=== PATIENT | female | born 1945 | race American Indian/Alaskan Native ===

== ENCOUNTER 2016-07-18 08:14 | Outpatient (CLI) | payer MEDICARE ==
--- NOTE | 2016-07-18 09:52 | Mammography Report ---
BILATERAL DIGITAL DIAGNOSTIC MAMMOGRAM WITH CAD: HISTORY: Six-month follow-up for left microcalcifications. Comparison is made to previous studies in December and June of 2015 and May of 2015. FINDINGS: The microcalcifications seen in the left breast at the 12:00 position have not changed in number or configuration. There is minimal variation in morphology of the individual calcifications, and some are too small to characterize even on magnification views. The remainder of the breast parenchyma is fibrofatty and stable. No new masses are seen. There is no architectural distortion. IMPRESSION: Stable left microcalcifications. BI-RADS CATEGORY: 3 = Probably benign ACR BI-RADS MAMMOGRAPHIC CODES: 0 = Needs additional imaging evaluation; 1 = Negative; 2 = Benign; 3 = Probably benign; 4 = Suspicious; 5 = Malignant; 6 = Known biopsy-proven malignancy COMMENT: 1. Dense breast tissue, i.e., adenosis, fibrocystic changes, etc., may obscure an underlying neoplasm. 2. Approximately 10% of cancers are not detected with mammography. 3. A negative mammography report should not delay biopsy if a clinically suspicious mass is present. RECOMMENDATION: Spot magnification images of the left microcalcifications are recommended in 6 months.
== END 2016-07-18 08:15 | disposition home or self-care (01) ==
LOC: SPVWC 08:14
PROVIDERS: ATTEND Obstetrics & Gynecology
DX: R92.1 Mammographic calcification found on diagnostic imaging of breast (principal); R92.8 Other abnormal and inconclusive findings on diagnostic imaging of breast
CPT/HCPCS: 77066; G0204

== ENCOUNTER 2017-01-10 08:21 | Outpatient (CLI) | payer MEDICARE ==
--- NOTE | 2017-01-10 09:22 | Mammography Report ---
LEFT DIGITAL DIAGNOSTIC MAMMOGRAM : 01/10/17 08:21:00 CLINICAL: Six month follow-up calcifications. COMPARISON:07/18/16 and mammograms of the left breast every six months going back to 06/27/15. FINDINGS:Routine views plus ML and CC magnification views were performed. A group of calcifications at 12 to 1 o'clock have changed slightly with a few new lower density calcifications identified. A second group of more lateral calcifications with only for calcifications in the group are stable. No mass or architectural distortion. IMPRESSION: A slight change with a few new calcifications in the group of calcifications at 12 to 1 o'clock which have been followed for 18 months. The calcifications have an intermediate suspicion for malignancy. Recommend stereotactic biopsy of the left breast to exclude malignancy. BI-RADS CATEGORY: 4--Suspicious I discussed the findings and the recommendation for a left stereotactic needle breast biopsy with the patient at the time of the examination. She is undecided as to whether she wants to go through with the biopsy at this time. I recommended that she return for a diagnostic mammogram with magnification views in six months if she decides not to have a biopsy. She will be due for a bilateral mammogram at that time. ACR BI-RADS MAMMOGRAPHIC CODES: 0 = Needs additional imaging evaluation; 1 = Negative; 2 = Benign; 3 = Probably benign; 4 = Suspicious; 5 = Malignant; 6 = Known biopsy-proven malignancy COMMENT: 1. Dense breast tissue, i.e., adenosis, fibrocystic changes, etc., may obscure an underlying neoplasm. 2. Approximately 10% of cancers are not detected with mammography. 3. A negative mammography report should not delay biopsy if a clinically suspicious mass is present. COMMENT: Patient follow-up letters are generated by our [employer] application.
== END 2017-01-10 08:22 | disposition home or self-care (01) ==
LOC: SPVWC 08:21
PROVIDERS: ATTEND Obstetrics & Gynecology
DX: R92.1 Mammographic calcification found on diagnostic imaging of breast (principal)
CPT/HCPCS: G0206-LT

== ENCOUNTER 2017-01-29 08:18 | Outpatient (CLI) | payer MEDICARE ==
--- NOTE | 2017-01-29 10:12 | Mammography Report ---
LEFT DIGITAL DIAGNOSTIC MAMMOGRAM: 01/29/17 08:18:00 CLINICAL: For clip placement immediately status post stereotactic biopsy. COMPARISON:01/10/17 FINDINGS: A biopsy clip is now identified at the site of previously described calcifications. Most if not all of the calcifications had been removed. IMPRESSION: Concordant clip placement status post stereotactic biopsy. BI-RADS CATEGORY: 4--Suspicious Pathology pending.
--- NOTE | 2017-01-29 15:29 | Mammography Report ---
STEREOTACTIC VACUUM ASSISTED BIOPSY WITH CLIP PLACEMENT LEFT BREAST: 01/29/17 08:18:00 CLINICAL: Suspicious calcifications. COMPARISON:01/10/17 FINDINGS: Consent for the procedure was obtained. The previously described calcifications were targeted with stereotactic guidance. The skin was prepped with Betadine and anesthetized with 1% lidocaine. 2% lidocaine with epinephrine was injected for deeper anesthesia. 8 gauge Mammotome biopsy was performed from a CC from above approach through a small dermatotomy. Prefire and post-fire images demonstrated satisfactory positioning of the probe. Samples were obtained around the clock face. A specimen radiograph confirmed satisfactory sampling with removal of sales representative raw fibers calcifications. A clip was deployed at the biopsy site and deployment was confirmed with a radiograph. The probe was removed and hemostasis was achieved with minimal pressure. A sterile dressing was applied. The patient tolerated the procedure well and there were no apparent complications. Two view mammogram demonstrated concordant position of the biopsy clip and removal of most if not all calcifications. IMPRESSION: Uncomplicated stereotactic biopsy with clip placement left breast.
== END 2017-01-29 08:19 | disposition home or self-care (01) ==
LOC: SPVWC 08:18
PROVIDERS: ATTEND Obstetrics & Gynecology
DX: R92.1 Mammographic calcification found on diagnostic imaging of breast (principal)
CPT/HCPCS: 19081; 88305; A4648; G0206

== ENCOUNTER 2019-04-21 13:11 | Inpatient (IN) | payer MEDICARE ==
[2019-04-21 14:21] LABS: Basophils % (Auto) 0.4 % (0.0-1.8); Eosinophils # (Auto) 0.4 K/mm3 (0.0-0.4); Eosinophils % (Auto) 5.6 % (0.0-4.3); Hematocrit 37.1 % (30.3-42.9); Hemoglobin 12.7 gm/dl (10.1-14.3); Lymphocytes # (Auto) 1.8 K/mm3 (1.2-5.4); Mean Corpuscular HGB Conc 34 % (30-34); Mean Corpuscular Volume 92 fl (79-97); Monocytes # (Auto) 0.5 K/mm3 (0.0-0.8); Monocytes % (Auto) 7.4 % (0.0-7.3); Platelet Count 172 K/mm3 (140-440); Red Blood Count 4.01 M/mm3 (3.65-5.03); Red Cell Distribution Width 13.7 % (13.2-15.2)
--- NOTE | 2019-04-21 14:23 | Emergency Department Report ---
<DARVIN PEREZNOBLE Davis - Last Filed: 04/21/19 15:58> ED Neuro Deficit HPI - General Chief Complaint: Neuro Symptoms/Deficit Stated Complaint: TIA Time Seen by Provider: 04/21/19 13:44 - Related Data Allergies/Adverse Reactions: Allergies Allergy/AdvReac Type Severity Reaction Status Date / Time cephalexin monohydrate AdvReac Rash Unverified 07/11/15 12:50 [From Keflex] tetracycline AdvReac Rash Unverified 07/11/15 12:49 ED Course - Reevaluation(s) Reevaluation #1: I discussed case with patient. I discussed all results patient. Discussed plan of care outpatient. Patient agrees plan of care and admission. I examined the patient. Patient was admitted to the hospital service. A neuro consult has been done and we will await recommendations. 04/21/19 15:58 - Consultations Consultation #2: Hospitalist consult for admission. Hospitalist admit patient. 04/21/19 15:59 - Lab Data Result diagrams: 04/21/19 13:54 04/21/19 13:54 ED Disposition Clinical Impression: TIA (transient ischemic attack), Facial droop, HTN (hypertension), Weakness of extremity Disposition: DC-[id number] OP ADMIT IP TO THIS HOSP Condition: Stable <YOSELYN SALAZAR - Last Filed: 04/21/19 16:15> ED Neuro Deficit HPI - General Source: patient Mode of arrival: Ambulatory Limitations: No Limitations - History of Present Illness Initial Comments: 73-year-old -[place] female with a past medical history hypertension, diabetes, hypercholesterolemia presents to the emergency department complaining of left arm weakness and left facial tingling that started around 12:00 today. Symptoms last for about 3 or 4 minutes before spontaneously resolving. There was no loss of vision, there is no chest pain, palpitations no fevers, chills, sweats. She went to her primary care was [facility]. advises come to the front to the evaluation. 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 denies: confusion, chest pain, cough, diaphoresis, loss of appetite, malise, nausea/vomiting, vertigo, weakness Treatments Prior to Arrival: none ED Review of Systems ROS: Stated complaint: TIA Other details as noted in HPI Comment: All other systems reviewed and negative ED Past Medical Hx - Past Medical History Previous Medical History?: Yes Hx Hypertension: Yes Hx Diabetes: Yes Additional medical history: HYPERLIPEDEMIA - Surgical History Past Surgical History?: No - Social History Smoking Status: Never Smoker Substance Use Type: None ED Neuro Physical Exam - General Limitations: No Limitations General appearance: alert, in no apparent distress Suspected Stroke: Yes - Head Head exam: Present: atraumatic, normocephalic - Eye Eye exam: Present: normal appearance, PERRL, EOMI. Absent: conjunctival injection, nystagmus Pupils: Present: normal accommodation - ENT ENT exam: Present: normal exam, normal orophraynx, mucous membranes moist - Neck Neck exam: Present: normal inspection, full ROM - Respiratory Respiratory exam: Present: normal lung sounds bilaterally. Absent: respiratory distress, wheezes, rales, chest wall tenderness, accessory muscle use, decreased breath sounds - Cardiovascular Cardiovascular Exam: Present: regular rate, normal rhythm. Absent: systolic murmur, diastolic murmur, rubs, gallop - GI/Abdominal GI/Abdominal exam: Present: soft, normal bowel sounds - Extremities Exam Extremities exam: Present: normal inspection - Back Exam Back exam: Present: normal inspection - Neurological Exam Neurological exam: Present: alert, oriented X3, CN II-XII intact, motor sensory deficit, reflexes normal, other (no normal. Strength 5-5. No tremor noted.) - NIHSS Assessment Interval: Baseline 1a. Level of Consciousness: alert/keenly responsive 1b. LOC Questions: answers both correctly 1c. LOC Commands: performs tasks correctly 2. Best Gaze: normal 3. Visual: no visual loss 4. Facial Palsy: normal symmetrical movement 5b. Motor Arm Right: no drift 5a. Motor Arm Left: no drift 6a. Motor Leg Left: no drift 6b. Motor Leg Right: no drift 7. Limb Ataxia: absent 8. Sensory: normal 9. Best Language: no aphasia 10. Dysarthria: normal 11. Extinction/Inattention: no abnormality Total Score: 0 Stroke Severity: No Stroke Symptoms - Psychiatric Psychiatric exam: Present: normal affect, normal mood - Skin Skin exam: Present: warm, dry, intact, normal color. Absent: rash ED Course - Consultations Consultation #1: 04/21/19 14:01 Case was discussed with my attending Dr. Allen who recommended to involve telemetry neuro for evaluation for possible TIA 04/21/19 16:07 - Lab Data Result diagrams: 04/21/19 13:54 04/21/19 13:54 Lab Results 04/21/19 04/21/19 04/21/19 Range/Units 13:54 13:54 13:54 WBC 6.8 (4.5-11.0) K/mm3 RBC 4.01 (3.65-5.03) M/mm3 Hgb 12.7 (10.1-14.3) gm/dl Hct 37.1 (30.3-42.9) % MCV 92 (79-97) fl MCH 32 (28-32) pg MCHC 34 (30-34) % RDW 13.7 (13.2-15.2) % Plt Count 172 (140-440) K/mm3 Lymph % (Auto) 27.0 (13.4-35.0) % [place] % (Auto) 7.4 H (0.0-7.3) % Eos % (Auto) 5.6 H (0.0-4.3) % Baso % (Auto) 0.4 (0.0-1.8) % Lymph # 1.8 (1.2-5.4) K/mm3 [place] # 0.5 (0.0-0.8) K/mm3 Eos # 0.4 (0.0-0.4) K/mm3 Baso # 0.0 (0.0-0.1) K/mm3 Seg Neutrophils % 59.6 (40.0-70.0) % Seg Neutrophils # 4.0 (1.8-7.7) K/mm3 PT 12.7 (12.2-14.9) Sec. INR 0.96 (0.87-1.13) APTT 29.4 (24.2-36.6) Sec. Thrombin Time 16.9 (15.1-19.6) Sec. Sodium 140 (137-145) mmol/L Potassium 3.9 (3.6-5.0) mmol/L Chloride 101.8 (98-107) mmol/L Carbon Dioxide 25 (22-30) mmol/L Anion Gap 17 mmol/L BUN 18 H (7-17) mg/dL Creatinine 0.9 (0.7-1.2) mg/dL Estimated GFR > 60 ml/min BUN/Creatinine Ratio 20 % Glucose 105 H (65-100) mg/dL POC Glucose (70-105) Calcium 9.0 (8.4-10.2) mg/dL Total Bilirubin 0.20 (0.1-1.2) mg/dL AST 13 (5-40) units/L ALT 7 (7-56) units/L Alkaline Phosphatase 71 (35-129) units/L Total Creatine Kinase 91 (30-135) units/L CK-MB (CK-2) 2.1 (0.0-4.0) ng/mL CK-MB (CK-2) Rel Index 2.3 (0-4) Troponin T < 0.010 (0.00-0.029) ng/mL Total Protein 7.2 (6.3-8.2) g/dL Albumin 3.8 L (3.9-5) g/dL Albumin/Globulin Ratio 1.1 % 04/21/19 Range/Units 14:02 WBC (4.5-11.0) K/mm3 RBC (3.65-5.03) M/mm3 Hgb (10.1-14.3) gm/dl Hct (30.3-42.9) % MCV (79-97) fl MCH (28-32) pg MCHC (30-34) % RDW (13.2-15.2) % Plt Count (140-440) K/mm3 Lymph % (Auto) (13.4-35.0) % [place] % (Auto) (0.0-7.3) % Eos % (Auto) (0.0-4.3) % Baso % (Auto) (0.0-1.8) % Lymph # (1.2-5.4) K/mm3 [place] # (0.0-0.8) K/mm3 Eos # (0.0-0.4) K/mm3 Baso # (0.0-0.1) K/mm3 Seg Neutrophils % (40.0-70.0) % Seg Neutrophils # (1.8-7.7) K/mm3 PT (12.2-14.9) Sec. INR (0.87-1.13) APTT (24.2-36.6) Sec. Thrombin Time (15.1-19.6) Sec. Sodium (137-145) mmol/L Potassium (3.6-5.0) mmol/L Chloride (98-107) mmol/L Carbon Dioxide (22-30) mmol/L Anion Gap mmol/L BUN (7-17) mg/dL Creatinine (0.7-1.2) mg/dL Estimated GFR ml/min BUN/Creatinine Ratio % Glucose (65-100) mg/dL POC Glucose 109 H (70-105) Calcium (8.4-10.2) mg/dL Total Bilirubin (0.1-1.2) mg/dL AST (5-40) units/L ALT (7-56) units/L Alkaline Phosphatase (35-129) units/L Total Creatine Kinase (30-135) units/L CK-MB (CK-2) (0.0-4.0) ng/mL CK-MB (CK-2) Rel Index (0-4) Troponin T (0.00-0.029) ng/mL Total Protein (6.3-8.2) g/dL Albumin (3.9-5) g/dL Albumin/Globulin Ratio % - Radiology Data Radiology results: report reviewed [facility] [address] [place] [address] Cat Scan Report Signed Patient: MALOU CHAVARRIA MR#: [id number] : 1945 Acct:[id number] Age/Sex: 73 / F ADM Date: 04/21/19 Loc: ED Attending Dr: Ordering Physician: GILES GOFF Date of Service: 04/21/19 Procedure(s): CT head/brain wo con Accession Number(s): [id number] cc: GILES GOFF CT head without contrast INDICATION : Stroke symptoms. TECHNIQUE: Axial imaging performed from the skull apex through the skull base without the use of contrast. All CT scans at this location are performed using CT dose reduction for ALARA by means of automated exposure control. COMPARISON: None FINDINGS: Parenchyma: A 5 mm right frontal lobe white matter hypodensity is probably a chronic lacunar infarct. Focal chronic ischemic change in the left occipital lobe white matter. No suspicious hypodensity. No mass or mass effect. No hemorrhage. Bilateral benign basal ganglia calcifications. Ventricles: Ventricles are normal in size and appear symmetric. Soft tissues: Soft tissues including the orbits appear normal. Bones: No acute osseous abnormality. Sinuses: Sinuses and mastoid air cells are clear. IMPRESSION: No evidence of acute infarct or hemorrhage. A verbal report was given to Rufino SKAGGS in the emergency department on 04/21/19 at 03:41 PM EST. Signer Name: Jesus Jason MD Signed: 04/21/2019 3:41 PM Workstation Name: [id number] Findings [facility] [address] [place] [address] XRay Report Signed Patient: MALOU CHAVARRIA MR#: [id number] : 1945 Acct:[id number] Age/Sex: 73 / F ADM Date: 04/21/19 Loc: ED Attending Dr: Ordering Physician: GILES GOFF Date of Service: 04/21/19 Procedure(s): XR chest 1V ap Accession Number(s): [id number] cc: GILES GOFF Fluoro Time In Minutes: CHEST 1 VIEW INDICATION: unilateral weakness. COMPARISON: None FINDINGS: Support devices: None. Heart: Within normal limits. Lungs/Pleura: There is an ill-defined airspace opacity in the left lower lobe behind the heart. The remainder the lungs are clear. No pleural effusion or pneumothorax. Additional findings: None. IMPRESSION: Left lower lobe opacity. Probable segmental atelectasis. If fevers present, early pneumonia could be considered. Signer Name: Onel Sims Jr, MD Signed: 04/21/2019 3:13 PM Workstation Name: [id number] Transcribed By: TTR Dictated By: ONEL SIMS JR, MD Electronically Authenticated By: ONEL SIMS JR, MD Signed Date/Time: 04/21/19 3881 Critical care attestation.: If time is entered above; I have spent that time in minutes in the direct care of this critically ill patient, excluding procedure time. ED Disposition Is pt being admited?: Yes Does the pt Need Aspirin: No
[2019-04-21 14:40] LABS: Creatine Kinase MB 2.1 ng/mL (0.0-4.0)
[2019-04-21 14:42] LABS: Alanine Aminotransferase 7 units/L (7-56); Albumin 3.8 g/dL (3.9-5); BUN/Creatinine Ratio 20; Blood Urea Nitrogen 18 mg/dL (7-17); Hemolysis Index 7
[2019-04-21 14:54] LABS: INR 0.96 (0.87-1.13); Partial Thromboplastin Time 29.4 Sec. (24.2-36.6)
[2019-04-21 14:55] LABS: Thrombin Time 16.9 Sec. (15.1-19.6)
--- NOTE | 2019-04-21 15:18 | XRay Report ---
CHEST 1 VIEW INDICATION: unilateral weakness. COMPARISON: None FINDINGS: Support devices: None. Heart: Within normal limits. Lungs/Pleura: There is an ill-defined airspace opacity in the left lower lobe behind the heart. The r emainder the lungs are clear. No pleural effusion or pneumothorax. Additional findings: None. IMPRESSION: Left lower lobe opacity. Probable segmental atelectasis. If fevers present, early pneumonia could be considered. Signer Name: Onel Sims Jr, MD Signed: 04/21/2019 3:13 PM Workstation Name: [id number]
--- NOTE | 2019-04-21 15:45 | Cat Scan Report ---
CT head without contrast INDICATION : Stroke symptoms. TECHNIQUE: Axial imaging performed from the skull apex through the skull base without the use of con trast. All CT scans at this location are performed using CT dose reduction for ALARA by means of aut omated exposure control. COMPARISON: None FINDINGS: Parenchyma: A 5 mm right frontal lobe white matter hypodensity is probably a chronic lacunar infarct . Focal chronic ischemic change in the left occipital lobe white matter. No suspicious hypodensity. N o mass or mass effect. No hemorrhage. Bilateral benign basal ganglia calcifications. Ventricles: Ventricles are normal in size and appear symmetric. Soft tissues: Soft tissues including the orbits appear normal. Bones: No acute osseous abnormality. Sinuses: Sinuses and mastoid air cells are clear. IMPRESSION: No evidence of acute infarct or hemorrhage. A verbal report was given to Rufino SKAGGS in the emergency department on 04/21/19 at 03:41 PM EST. Signer Name: Jesus Jason MD Signed: 04/21/2019 3:41 PM Workstation Name: [id number]
--- NOTE | 2019-04-21 16:42 | Emergency Department Report ---
ED Neuro Deficit HPI - General Chief Complaint: Neuro Symptoms/Deficit Stated Complaint: TIA Time Seen by Provider: 04/21/19 13:44 Source: patient Mode of arrival: Ambulatory Limitations: No Limitations - History of Present Illness Initial Comments: [facility] Impression: TIA - Right hemispheric - Resolved symptoms - m/l cardioembolic, history of afib will need transition to anticoagulant - needs admission for further workup Recommendations: Activate Stroke protocol admission/order set Stroke/telemetry floor Neuro checks Bedside swallow eval Dvt prophylaxis IV fluids, normal saline ASA if no contraindications Head of bed below 30 degrees Euglycemia and avoid hyperthermia (prn acetaminophen) Discussed with ed md Call with questions 1945 CC: numbness History of Present Illness: The patient was on her way for [employer] education and her left hand started to get numb- from hand to arm. The numbness started to go away from the hand and started on the chin. Lasted about 5 minutes and it happened around 1145. After everything went away she did not get a headache. This has not happened before. No previous stroke, she does have afib, but not on a blood thinner. Diagnostic Testing: Ct head without contrast: no acute findings per rad read Exam: Mental Status: Awake, alert, oriented Naming: Intact Repetition: Intact Speech: fluent Cranial Nerves: Pupils: Equal round and reactive to light Extraocular movements: Intact in all cardinal gaze Ptosis: right eye, chronic Visual acosta: Intact to finger counting, on left. 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 - Extensive amount of complex data reviewed. - High risk of complication and/or morbidity or mortality are associated with differential diagnostic considerations above. - There may be uncertain outcome and increased probability of prolonged function al impairment or high probability of severe prolonged functional impairment associated with some of these differential diagnosis. Medical Data Reviewed: 1.Data reviewed include clinical labs, radiology, Medical Tests; 2.Tests results discussed w/performing or interpreting physician; 3.Obtaining/reviewing old medical records; 4.Obtaining case history from another source; 5.Independent review of image, tracing or specimen. Patient was informed the Neurology Consult would happen via telehealth (remote video) and consented to receiving care in this manner. Location: left arm History of same: No Place: other (in the car on the way to diabetic training) Severity: mild Quality: weak, numb, tingling Improves With: none Worsens With: none On Anticoagulants: No Treatments Prior to Arrival: none - Related Data Allergies/Adverse Reactions: Allergies Allergy/AdvReac Type Severity Reaction Status Date / Time cephalexin monohydrate AdvReac Rash Unverified 07/11/15 12:50 [From Keflex] tetracycline AdvReac Rash Unverified 07/11/15 12:49 ED Review of Systems ROS: Stated complaint: TIA Other details as noted in HPI ED Past Medical Hx - Past Medical History Previous Medical History?: Yes Hx Hypertension: Yes Hx Diabetes: Yes Additional medical history: HYPERLIPEDEMIA - Surgical History Past Surgical History?: No - Social History Smoking Status: Never Smoker Substance Use Type: None ED Neuro Physical Exam - General Limitations: No Limitations General appearance: alert, in no apparent distress Suspected Stroke: No - Lab Data Result diagrams: 04/21/19 13:54 04/21/19 13:54 Lab Results 04/21/19 04/21/19 04/21/19 Range/Units 13:54 13:54 13:54 WBC 6.8 (4.5-11.0) K/mm3 RBC 4.01 (3.65-5.03) M/mm3 Hgb 12.7 (10.1-14.3) gm/dl Hct 37.1 (30.3-42.9) % MCV 92 (79-97) fl MCH 32 (28-32) pg MCHC 34 (30-34) % RDW 13.7 (13.2-15.2) % Plt Count 172 (140-440) K/mm3 Lymph % (Auto) 27.0 (13.4-35.0) % [place] % (Auto) 7.4 H (0.0-7.3) % Eos % (Auto) 5.6 H (0.0-4.3) % Baso % (Auto) 0.4 (0.0-1.8) % Lymph # 1.8 (1.2-5.4) K/mm3 [place] # 0.5 (0.0-0.8) K/mm3 Eos # 0.4 (0.0-0.4) K/mm3 Baso # 0.0 (0.0-0.1) K/mm3 Seg Neutrophils % 59.6 (40.0-70.0) % Seg Neutrophils # 4.0 (1.8-7.7) K/mm3 PT 12.7 (12.2-14.9) Sec. INR 0.96 (0.87-1.13) APTT 29.4 (24.2-36.6) Sec. Thrombin Time 16.9 (15.1-19.6) Sec. Sodium 140 (137-145) mmol/L Potassium 3.9 (3.6-5.0) mmol/L Chloride 101.8 (98-107) mmol/L Carbon Dioxide 25 (22-30) mmol/L Anion Gap 17 mmol/L BUN 18 H (7-17) mg/dL Creatinine 0.9 (0.7-1.2) mg/dL Estimated GFR > 60 ml/min BUN/Creatinine Ratio 20 % Glucose 105 H (65-100) mg/dL POC Glucose (70-105) Calcium 9.0 (8.4-10.2) mg/dL Total Bilirubin 0.20 (0.1-1.2) mg/dL AST 13 (5-40) units/L ALT 7 (7-56) units/L Alkaline Phosphatase 71 (35-129) units/L Total Creatine Kinase 91 (30-135) units/L CK-MB (CK-2) 2.1 (0.0-4.0) ng/mL CK-MB (CK-2) Rel Index 2.3 (0-4) Troponin T < 0.010 (0.00-0.029) ng/mL Total Protein 7.2 (6.3-8.2) g/dL Albumin 3.8 L (3.9-5) g/dL Albumin/Globulin Ratio 1.1 % 04/21/19 Range/Units 14:02 WBC (4.5-11.0) K/mm3 RBC (3.65-5.03) M/mm3 Hgb (10.1-14.3) gm/dl Hct (30.3-42.9) % MCV (79-97) fl MCH (28-32) pg MCHC (30-34) % RDW (13.2-15.2) % Plt Count (140-440) K/mm3 Lymph % (Auto) (13.4-35.0) % [place] % (Auto) (0.0-7.3) % Eos % (Auto) (0.0-4.3) % Baso % (Auto) (0.0-1.8) % Lymph # (1.2-5.4) K/mm3 [place] # (0.0-0.8) K/mm3 Eos # (0.0-0.4) K/mm3 Baso # (0.0-0.1) K/mm3 Seg Neutrophils % (40.0-70.0) % Seg Neutrophils # (1.8-7.7) K/mm3 PT (12.2-14.9) Sec. INR (0.87-1.13) APTT (24.2-36.6) Sec. Thrombin Time (15.1-19.6) Sec. Sodium (137-145) mmol/L Potassium (3.6-5.0) mmol/L Chloride (98-107) mmol/L Carbon Dioxide (22-30) mmol/L Anion Gap mmol/L BUN (7-17) mg/dL Creatinine (0.7-1.2) mg/dL Estimated GFR ml/min BUN/Creatinine Ratio % Glucose (65-100) mg/dL POC Glucose 109 H (70-105) Calcium (8.4-10.2) mg/dL Total Bilirubin (0.1-1.2) mg/dL AST (5-40) units/L ALT (7-56) units/L Alkaline Phosphatase (35-129) units/L Total Creatine Kinase (30-135) units/L CK-MB (CK-2) (0.0-4.0) ng/mL CK-MB (CK-2) Rel Index (0-4) Troponin T (0.00-0.029) ng/mL Total Protein (6.3-8.2) g/dL Albumin (3.9-5) g/dL Albumin/Globulin Ratio % Critical care attestation.: If time is entered above; I have spent that time in minutes in the direct care of this critically ill patient, excluding procedure time. ED Disposition Clinical Impression: TIA (transient ischemic attack) Disposition: OP ADMIT IP TO THIS HOSP Is pt being admited?: Yes Condition: Stable Referrals: PRIMARY CARE, [Primary Care Provider] - 3-5 Days
[2019-04-21] MEDS ORDERED: SODIUM CHLORIDE FLUSH SYRINGE 10 ML IV PRN (21:19)
[2019-04-21] MEDS ORDERED: IRBESARTAN PO SCH (21:30)
[2019-04-21] MEDS ORDERED: HYDROCHLOROTHIAZIDE PO SCH (21:30)
[2019-04-21] MEDS ORDERED: COZAAR PO SCH (22:00)
[2019-04-21] MEDS: HCTZ PO SCH (22:58)
[2019-04-22] MEDS ORDERED: D50W (25GM) Syringe IV PRN (05:33)
[2019-04-22 06:32] LABS: Chol/HDL Ratio 2.96 %
--- NOTE | 2019-04-22 06:32 | Event Note ---
Date: 04/21/19 See H/p in reports TIA
--- NOTE | 2019-04-22 07:30 | History and Physical Report ---
CHIEF COMPLAINT: Left facial numbness and left upper extremity and lower extremity numbness. HISTORY OF PRESENT ILLNESS: A 73-year-old female developed left hand numbness, which is extended to the left arm and left face and left lower extremity. It lasted about 5 minutes. It started around 11:45. No residual weakness. The patient has atrial fibrillation, but not on a blood thinner. No seizures. No exacerbating or relieving factors. PAST MEDICAL HISTORY: Significant for hypertension and hyperlipidemia. CURRENT MEDICATIONS: Avalide 300/12.5 daily and rosuvastatin 40 mg daily. PAST SURGICAL HISTORY: None. SOCIAL HISTORY: Does not smoke. FAMILY HISTORY: Hypertension. REVIEW OF SYSTEMS: Significant for left facial and left upper extremity numbness, which lasted for about 5-10 minutes and resolved. No residual weakness. Also irregular heart. No palpitations. PHYSICAL EXAMINATION: GENERAL: Elderly female, cooperative during examination. VITAL SIGNS: Blood pressure is 175/76, temperature is 97.5, pulse is 85, respirations are 22. HEENT: Unremarkable. Pupils equal and reactive. NECK: Supple, no lymphadenopathy, no thyromegaly. LUNGS: Clear to auscultation and percussion. Good air entry. CARDIOVASCULAR: S1, S2 heard. No gallop, no murmur, no rub. Apical impulse in left fifth intercostal space and midclavicular line. ABDOMEN: Soft and benign. No hepatosplenomegaly, no guarding, no rigidity. Hernial orifices are normal. EXTREMITIES: Good pedal pulses. No pedal edema. CENTRAL NERVOUS SYSTEM: Alert and oriented x 4, nonfocal exam. SKIN: Normal. LABORATORY DATA: Normal CBC. Normal electrolytes. BUN and creatinine is 18 and 0.9, glucose is 105. A1c is 5.6. Lipid profile is normal. Albumin is 3.8, slightly low. Head CT with no evidence of acute infarct or hemorrhage. Chest x-ray, no acute findings. EKG: Atrial fibrillation. ASSESSMENT AND PLAN: 1. Transient ischemic attack workup including MRI, echocardiogram, and Carotid duplex scan. MRA was not ordered. Neurology consult requested. 2. Hypertension. Continue antihypertensives. 3. Hyperlipidemia. Continue statins. 4. Deep venous thrombosis prophylaxis, on Lovenox. 5. Atrial fibrillation. The patient initiated on Eliquis 5 mg b.i.d. JOB# [id number] ANGELA/CONTRERAS RIZVI
--- NOTE | 2019-04-22 09:42 | Magnetic Resonance Report ---
MRI BRAIN WITHOUT CONTRAST INDICATION / CLINICAL INFORMATION: Left facial numbness and left arm numbness and tingling. TECHNIQUE: Multiplanar, multisequence MR images of the brain were obtained. COMPARISON: Head CT on 04/21/2019. FINDINGS: BRAIN / INTRACRANIAL CONTENTS: No acute ischemia, acute hemorrhage, mass effect, midline shift, or hy drocephalus. No chronic infarct. Age-commensurate generalized ventricular and cisternal/sulcal promi nence without discrete superimposed focal atrophy. Age-commensurate small foci of cerebral white renate er FLAIR hyperintensity. CRANIOCERVICAL JUNCTION: No significant abnormality. VASCULAR FLOW-VOIDS: No significant abnormality. 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 There has been previous left lens replacement. SINUSES / MASTOIDS: No significant abnormality of visualized sinuses and mastoid air cells. ADDITIONAL FINDINGS: None. IMPRESSION: 1. No acute infarct or other acute intracranial abnormality. Signer Name: Tian Dumont MD Signed: 04/22/2019 9:38 AM Workstation Name: [id number]
[2019-04-22] MEDS ORDERED: COZAAR PO SCH (10:00)
[2019-04-22] MEDS ORDERED: ELIQUIS PO SCH (10:00)
[2019-04-22] MEDS ORDERED: NON-FORMULARY (Rosuvastatin Calcium [Rosuvastatin Calcium] 40 MG) PO SCH (10:00)
[2019-04-22 11:40] VITALS: BP 163/56
[2019-04-22] MEDS: HCTZ PO SCH (11:40)
--- NOTE | 2019-04-22 12:06 | Vascular Lab Report ---
"DUPLEX DOPPLER ULTRASOUND CAROTID, BILATERAL INDICATION: stroke. FINDINGS: Tortuous ICAs bilaterally RIGHT CAROTID: Mild plaque Right CCA velocity: 80 cm/sec. Right ICA peak systolic velocity: 81 cm/sec. ICA/CCA PSV Ratio: 1. Right Vertebral Artery: Antegrade flow. LEFT CAROTID: Mild plaque Left CCA velocity: 81 cm/sec. Left ICA peak systolic velocity: 80 cm/sec. ICA/CCA PSV Ratio: 1. Left Vertebral Artery: Antegrade flow. IMPRESSION: 1. Right Internal Carotid Artery: Less than 50% diameter stenosis. 2. Left Internal Carotid Artery: Less than 50% diameter stenosis. Velocity criteria are extrapolated from diameter data as defined by the Society of Radiologists in Ul trasound Consensus Conference, Radiology 2003; 229;340-346. Degree of Stenosis (%) || ICA PSV (cm/sec) || Plaque estimate (%) || ICA/CCA PSV Ratio Normal <125 None <2.0 <50 <125 <50 <2.0 50-69 125-230 50 2.0-4.0 70 but less than 100 >230 50 >4.0 Near occlusion High, low, or none visible variable Total occlusion None visible; no lumen N/A Signer Name: Gordo Enrique MD Signed: 04/22/2019 12:02 PM Workstation Name: [id number]"
--- NOTE | 2019-04-22 14:09 | Consultation ---
History of Present Illness Consult date: 04/22/19 Consult reason: atrial fibrillation History of present illness: This is a 73-year old woman with a medical history hypertension, diabetes and hyperlipidemia. Patient also gives a remote history of atrial fibrillation but has never taken oral anticoagulation agents. Patient has also been lost to outpatient cardiac follow ups. Patient presented to this hospital with complaints of left arm weakness and left facial tingling, admitted with TIA. Symptoms has since resolved. A cardiac consultation has been requested for reported history of atrial fibrillation. Patient denies palpitations, chest pain and unusual shortness of breath. An ECG is normal sinus rhythm. There are no arrhythmias seen on telemetry monitoring. Medications and Allergies Allergies Allergy/AdvReac Type Severity Reaction Status Date / Time cephalexin monohydrate AdvReac Rash Unverified 07/11/15 12:50 [From Keflex] tetracycline AdvReac Rash Unverified 07/11/15 12:49 Home Medications Medication Instructions Recorded Confirmed Last Taken Type Irbesartan/Hydrochlorothiazide 1 each PO QDAY 04/21/19 04/21/19 Unknown History [Avalide 300-12.5 mg Tablet] Rosuvastatin Calcium 40 mg PO DAILY 04/21/19 04/21/19 Unknown History Active Meds: Active Medications Apixaban (Eliquis) 5 mg PO Q12HR [facility]; Protocol Last Admin: 04/22/19 11:40 Dose: 5 mg Documented by: Atorvastatin Calcium (Lipitor) 40 mg PO QHS [facility] Last Admin: 04/21/19 22:59 Dose: 40 mg Documented by: Dextrose (D50w (25gm) Syringe) 0 ml IV Q30MIN PRN PRN Reason: Hypoglycemia Last Admin: 04/22/19 06:05 Dose: 20 ml Documented by: Hydrochlorothiazide (Hctz) 12.5 mg PO QDAY [facility] Last Admin: 04/22/19 11:40 Dose: 12.5 mg Documented by: Losartan Potassium (Cozaar) 100 mg PO QDAY [facility] Last Admin: 04/22/19 11:40 Dose: 100 mg Documented by: Sodium Chloride (Sodium Chloride Flush Syringe 10 Ml) 10 ml IV PRN PRN PRN Reason: LINE FLUSH Physical Examination Vital Signs Temp Pulse Resp BP Pulse Ox 98 F 69 12 186/74 96 04/21/19 13:50 04/21/19 13:50 04/21/19 13:50 04/21/19 13:50 04/21/19 13:50 General appearance: no acute distress HEENT: Positive: PERRL Cardiac: Positive: Reg Rate and Rhythm Lungs: Positive: Decreased Breath Sounds Neuro: Positive: Grossly Intact Extremities: Absent: edema Results 04/21/19 13:54 04/21/19 13:54 Cardiac Enzymes 04/21/19 Range/Units 13:54 AST 13 (5-40) units/L CK-MB (CK-2) 2.1 (0.0-4.0) ng/mL Coagulation 04/21/19 Range/Units 13:54 PT 12.7 (12.2-14.9) Sec. INR 0.96 (0.87-1.13) APTT 29.4 (24.2-36.6) Sec. Lipids 04/22/19 Range/Units 05:50 Triglycerides 66 (2-149) mg/dL Cholesterol 172 (50-199) mg/dL HDL Cholesterol 58 (40-59) mg/dL Cholesterol/HDL Ratio 2.96 % CBC 04/21/19 Range/Units 13:54 WBC 6.8 (4.5-11.0) K/mm3 RBC 4.01 (3.65-5.03) M/mm3 Hgb 12.7 (10.1-14.3) gm/dl Hct 37.1 (30.3-42.9) % Plt Count 172 (140-440) K/mm3 Lymph # 1.8 (1.2-5.4) K/mm3 [place] # 0.5 (0.0-0.8) K/mm3 Eos # 0.4 (0.0-0.4) K/mm3 Baso # 0.0 (0.0-0.1) K/mm3 Comprehensive Metabolic Panel 04/21/19 Range/Units 13:54 Sodium 140 (137-145) mmol/L Potassium 3.9 (3.6-5.0) mmol/L Chloride 101.8 (98-107) mmol/L Carbon Dioxide 25 (22-30) mmol/L BUN 18 H (7-17) mg/dL Creatinine 0.9 (0.7-1.2) mg/dL Glucose 105 H (65-100) mg/dL Calcium 9.0 (8.4-10.2) mg/dL AST 13 (5-40) units/L ALT 7 (7-56) units/L Alkaline Phosphatase 71 (35-129) units/L Total Protein 7.2 (6.3-8.2) g/dL Albumin 3.8 L (3.9-5) g/dL Assessment and Plan TIA Hypertension Diabetes HLP Echocardiogram has been completed. Results are pending. There is no evidence of atrial fibrillation. No arrhythmias seen on telemetry monitoring. Oral anticoagulation therapy will be based on the recommendations of Neurology. Patient advised to follow up in our office for an outpatient holter monitor.
--- NOTE | 2019-04-22 16:21 | Discharge Summary ---
Providers - Providers Date of Admission: 04/21/19 16:16 Date of discharge: 04/22/19 Attending physician: SUSHANT CURRY MD 04/21/19 Consult to Physician [CONS] Routine Comment: Consulting Provider: VERITO NUNO Physician Instructions: Reason For Exam: TIA 04/21/19 21:19 Occupational Therapy Evaluate and Treat [CONS] Routine Comment: Reason For Exam: Neuro deficits Physical Therapy Evaluation and Treat [CONS] Routine Comment: Reason For Exam: Neuro deficits 04/22/19 06:40 Consult to Physician [CONS] Routine Comment: Consulting Provider: CULLEN ROCA Physician Instructions: Reason For Exam: A Fib Primary care physician: TOÑO TRINIDAD Hospitalization Reason for admission: TIA, HTM Condition: Stable Pertinent studies: CT, MRI; head Carotid doppler Echo Hospital course: 73-year-old female with a past medical history hypertension, diabetes, hypercholesterolemia presented to the emergency department complaining of left arm weakness and left facial tingling that started around 12:00 today. Symptoms last for about 3 or 4 minutes before spontaneously resolving. There was no loss of vision, there is no chest pain, palpitations no fevers, chills, sweats. She went to her primary care was advised to come for evaluation. Patient claimed she has history of a.fib and cardiology saw the patient and didn't find any record of a.fib. Patient didn't have any a.fib while the patient was in the hospital. [facility] will see the patient in the office and will give her event monitor. CVA work up was negative, Neurology saw that patient and recommended to give her dual antiplatelet therapy. Aspirin and plavix. Plavix will be given for a week and will continue aspirin indefinitely. patient was hemodynamically stable, no neuro deficit and discharged home. Disposition: [id number] HOME UNDER HOME [facility] Time spent for discharge: 34 minutes - Discharge Diagnoses (1) Facial droop Status: Acute (2) HTN (hypertension) Status: Acute (3) TIA (transient ischemic attack) Status: Acute (4) Weakness of extremity Status: Acute Core Measure Documentation - Palliative Care Palliative Care/ Comfort Measures: Not Applicable - Core Measures Any of the following diagnoses?: stroke (TIA) - Stroke Discharge Requirements Statin for LDL = or >70 mg/dl on DC: Yes Anticoag for atrial fib/atrial flutter: Yes Antithrombotic for ischemic stroke: Yes Exam - Constitutional Vitals: Temp Pulse Resp BP Pulse Ox 98.5 F 65 22 163/56 94 04/22/19 07:57 04/22/19 11:40 04/22/19 10:00 04/22/19 11:40 04/22/19 10:00 General appearance: Present: no acute distress, obese - EENT Eyes: Present: PERRL ENT: hearing intact, clear oral mucosa - Neck Neck: Present: supple, normal ROM - Respiratory Respiratory effort: normal Respiratory: bilateral: CTA - Cardiovascular Rhythm: regular Heart Sounds: Present: S1 & S2. Absent: rub, click - Extremities Extremities: pulses symmetrical, No edema Peripheral Pulses: within normal limits - Abdominal General gastrointestinal: Present: soft, non-tender, non-distended, normal bowel sounds Female genitourinary: Present: deferred - Rectal Rectal Exam: deferred - Integumentary Integumentary: Present: clear, warm, dry - Psychiatric Psychiatric: appropriate mood/affect, intact judgment & insight - Neurologic Neurologic: CNII-XII intact, moves all extremities - Allied Health Allied health notes reviewed: nursing, PT, social work, case management Plan Activity: no restrictions Weight Bearing Status: Full Weight Bearing Diet: low cholesterol, low salt Follow up with: PRIMARY CAREMD [Referring] - 3-5 Days CULLEN ROCA MD [Staff Physician] - 10 Days Prescriptions: Aspirin [Aspirin BABY CHEW TAB] 81 mg PO QDAY #30 tab.chew Losartan [Cozaar] 100 mg PO QDAY #30 tablet hydroCHLOROthiazide [HCTZ] 12.5 mg PO QDAY #30 capsule Clopidogrel [Plavix] 75 mg PO QDAY #30 tablet
--- NOTE | 2019-04-22 16:24 | Consultation ---
History of Present Illness Consult date: 04/22/19 Reason for Consult: TIA Chief complaint: Left sided numbness History of present illness: The patient is a 73-year-old woman with history of hypertension, diabetes mellitus, hyperlipidemia, atrial fibrillation not on anticoagulation. Yesterday and around 12 PM, the patient experienced numbness in the left upper extremity which then involved the left side of the face. Symptoms lasted around 4-5 minutes prior to completely resolving. Patient did not experience any weakness, dysarthria, aphasia, or any other symptoms at the time of the episode. 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 Past History Past Medical History: other (hypertension, diabetes mellitus, hyperlipidemia, atrial fibrillation) Social history: no significant social history, lives with family Family history: no significant family history Medications and Allergies Allergies Allergy/AdvReac Type Severity Reaction Status Date / Time cephalexin monohydrate AdvReac Rash Unverified 07/11/15 12:50 [From Keflex] tetracycline AdvReac Rash Unverified 07/11/15 12:49 Home Medications Medication Instructions Recorded Confirmed Last Taken Type Rosuvastatin Calcium 40 mg PO DAILY 04/21/19 04/21/19 Unknown History Apixaban [Eliquis] 5 mg PO Q12HR #30 tablet 04/22/19 Unknown Rx Losartan [Cozaar] 100 mg PO QDAY #30 tablet 04/22/19 Unknown Rx hydroCHLOROthiazide [HCTZ] 12.5 mg PO QDAY #30 capsule 04/22/19 Unknown Rx Active Meds: Active Medications Apixaban (Eliquis) 5 mg PO Q12HR [facility]; Protocol Last Admin: 04/22/19 11:40 Dose: 5 mg Documented by: Atorvastatin Calcium (Lipitor) 40 mg PO QHS [facility] Last Admin: 04/21/19 22:59 Dose: 40 mg Documented by: Dextrose (D50w (25gm) Syringe) 0 ml IV Q30MIN PRN PRN Reason: Hypoglycemia Last Admin: 04/22/19 06:05 Dose: 20 ml Documented by: Hydrochlorothiazide (Hctz) 12.5 mg PO QDAY [facility] Last Admin: 04/22/19 11:40 Dose: 12.5 mg Documented by: Losartan Potassium (Cozaar) 100 mg PO QDAY [facility] Last Admin: 04/22/19 11:40 Dose: 100 mg Documented by: Sodium Chloride (Sodium Chloride Flush Syringe 10 Ml) 10 ml IV PRN PRN PRN Reason: LINE FLUSH Review of Systems All systems: negative Neurological: numbness Physical Examination - Vital Signs Vital Signs: Vital Signs Temp Pulse Resp BP Pulse Ox 98 F 69 12 186/74 96 04/21/19 13:50 04/21/19 13:50 04/21/19 13:50 04/21/19 13:50 04/21/19 13:50 - Constitutional General appearance: comfortable - EENT EENT: Present: ATNC, PERRL, mucous membranes moist, hearing intact, other (chronically blind in right eye) - Respiratory Respiratory: Present: lungs clear, normal breath sounds - Cardiovascular Cardiovascular: Present: regular rate, normal S1, normal S2 Extremities: Present: no clubbing, cyanosis, no inflammation - Gastrointestinal Gastrointestinal: Present: normoactive bowel sounds, soft, non-tender - Integumentary Integumentary: Present: normal - Neurologic Cranial nerve examination: anosmic, PERRL, EOMI, VFF (blind in right eye, VFF in left eye), V1/V2/V3 grossly intact, face symmetric, tongue midline, intact shoulder shrug Speech examination: intact Sensorimotor examination: intact Detailed motor examination: full strength in all sharona Motor examination - right side: 5/5: biceps, triceps, wrist flexion, wrist extension, narrative writer, hip flexors, knee extensors, dorsiflexion, toe extension (EHL), plantarflexion Motor examination - left side: 5/5: biceps, triceps, wrist flexion, wrist extension, narrative writer, hip flexors, knee extensors, dorsiflexion, toe extension (EHL), plantarflexion Detailed sensory examination: intact, light touch Reflexes: 2+: ankle, bicep, knee, tricep Cerebellar examination: other (no dysmetria on FTN ot HTS) - Musculoskeletal Musculoskeletal: Present: no fluid collection, no pain - Psychiatric Psychiatric: Present: mood/affect appropriate - Level of Consciousness 1a. Level of Consciousness: alert/keenly responsive - LOC Questions 1b. LOC Questions: answers both correctly - LOC Command 1c. LOC Commands: performs tasks correctly - Best Gaze 2. Best Gaze: normal - Visual 3. Visual: no visual loss - Facial Palsy 4. Facial Palsy: normal symmetrical movement - Motor Arm 5a. Motor Arm Left: no drift 5b. Motor Arm Right: no drift - Motor Leg 6a. Motor Leg Left: no drift 6b. Motor Leg Right: no drift - Limb Ataxia 7. Limb Ataxia: absent - Sensory 8. Sensory: normal - Best Language 9. Best Language: no aphasia - Dysarthria 10. Dysarthria: normal - Extinction and Inattention 11. Extinction/Inattention: no abnormality - Scoring Total Score: 0 Stroke Severity: No Stroke Symptoms Results - Laboratory Findings CBC and BMP: 04/21/19 13:54 04/21/19 13:54 Abnormal Lab Findings: Abnormal Labs 04/21/19 04/21/19 04/21/19 13:54 13:54 14:02 [place] % (Auto) 7.4 H Eos % (Auto) 5.6 H BUN 18 H Glucose 105 H POC Glucose 109 H Albumin 3.8 L Assessment and Plan The patient is a 73-year-old woman with history of hypertension, diabetes mellitus, hyperlipidemia, atrial fibrillation not on anticoagulation, who p/w left UE and Lt. face numbness yesterday which lasted approximately 45 minutes prior to resolving. According patient's clinical findings, it is likely that she's had a TIA. Plan: 1. TIA - MRI did not show any evidence of stroke - CUS: no significant stenosis - Echo: pending - Patient was started on Eliquis 5mg BID, which is appropriate dose spare hand her age, creatinine, and weight. Patient states that she follows with [facility], and that she has clearly been told that she has atrial fibrillation in the past. Cardiology has seen patient, however did not comment on whether patient has documented history of A-fib in their records. If there is a documented history of A-fib, then I agree with starting Eliquis. If there is no documented history of A-fib, then would recommend long-term cardiac monitoring with 30-day MCOT or ILR, and start dual anti-platelet therapy with ASA 81mg daily and Plavix 75mg daily for 90 days, after which plavix can be stopped. - Cont. statin. LDL 111. Goal LDL <70. - No indication for PT/OT/ST, as symptoms have resolved. - DVT Ppx: Eliquis - Recommend for patient to follow up with neurology in 3-4 weeks outpatient. - Recommend for patient to follow up with cardiology within one week to review echo results. 2. Hypertension: - Recommend target normotension, as no stroke on MRI. Will sign off. Please call with any questions. Heladio Hylton MD Neurology
== END 2019-04-22 17:50 | disposition home health service (06) | DRG 69 ==
LOC: ED 13:11 → 2B-ACE 16:16
PROVIDERS: ADMIT Internal Medicine; ATTEND Internal Medicine
DX: G45.9 Transient cerebral ischemic attack, unspecified (principal); I10 Essential (primary) hypertension; E11.9 Type 2 diabetes mellitus without complications; I48.91 Unspecified atrial fibrillation; R29.810 Facial weakness; E78.5 Hyperlipidemia, unspecified; Z88.1 Allergy status to other antibiotic agents; Z79.899 Other long term (current) drug therapy; Z82.49 Family history of ischemic heart disease and other diseases of the circulatory system
CPT/HCPCS: 36415; 70450; 70551; 71045; 80053; 80061; 82550; 82553; 82962; 83036; 84484; 85025; 85610; 85670; 85730; 93005; 93010; 93306; 93880; 96365; G0378; A9270-GY